=== PATIENT | male | born 1960 | race African-American/Black ===

== ENCOUNTER 2017-06-09 11:10 | Emergency (ER) | payer OTHER ==
[~2017-06-09] VITALS: Ht 190.5 cm; Wt 111.0 kg
[~2017-06-09 11:10] MED LIST: CENTRUM SILVER1 EAC3 PO; LEVITRA20 MG PO; LOSARTAN-HCTZ1 EAC2 PO; OXYCODONE-APAP1 EACH PO; PROTONIX40 MG PO
[2017-06-09 12:09] LABS: HEMATOCRIT 44.8 % (38.0-50.0); HEMOGLOBIN 14.9 G/DL (12.5-16.6); MCH 27.2 PG (29.0-34.0); MCHC 33.3 G/DL (30.0-36.0); MCV 81.8 FL (86-99); PLATELET COUNT 249 K/uL (156-360); RBC DIS.WIDTH-CV 14.1 % (11.8-14.6); RBC DIS.WIDTH-SD 41.7 % (39-53); RED BLOOD COUNT 5.48 M/uL (4.00-5.50); WHITE BLOOD COUNT 9.6 K/uL (4.1-10.2)
[2017-06-09 12:20] LABS: ALBUMIN 4.2 g/dL (3.2-4.8)
[2017-06-09 12:21] LABS: CHLORIDE 109 mEq/L (99-109); POTASSIUM 3.4 mEq/L (3.7-5.4); SODIUM 144 mEq/L (136-147)
[2017-06-09 12:23] LABS: GLUCOSE 113 mg/dL (70-99); TOTAL PROTEIN 8.2 g/dL (6.4-8.3)
[2017-06-09 12:25] LABS: TOTAL BILIRUBIN 0.5 mg/dL (0.0-1.0)
[2017-06-09 12:26] LABS: ALKALINE PHOSPHATASE 59 IU/L (3-129)
[2017-06-09 12:27] LABS: CREATININE 1.3 mg/dL (0.6-1.3); GFR ESTIMATE (CALCULATED) > 59 mL/min/ (58.99-99999)
[2017-06-09 12:28] LABS: AST (GOT) 17 IU/L (2-34); UREA NITROGEN (BUN) 17 mg/dL (9-23)
[2017-06-09 12:29] LABS: ALT (GPT) 14 IU/L (3-49)
[2017-06-09 14:12] LABS: APPEARANCE CLEAR ((CLEAR)); BILIRUBIN NEGATIVE; BLOOD NEGATIVE; COLOR YELLOW ((YELLOW)); GLUCOSE (STRIP) NEGATIVE; KETONES 5; LEUKOCYTES NEGATIVE; NITRITE NEGATIVE; PROTEIN (STRIP) NEGATIVE; SPECIFIC GRAVITY 1.018 (1.000-1.030); UCUL ADDED? NO; UROBILINOGEN 0.2 MG/DL (0.2-1.0)
[2017-06-09] MEDS ORDERED: MIRALAX119 GM PO (16:27)
[2017-06-09] MEDS ORDERED: CITRATE OF MAG296 ML PO (16:27)
[2017-06-09 16:47] VITALS: BP 154/90
== END 2017-06-09 16:47 | disposition home or self-care (01) ==
LOC: EME 11:10
DX: K59.00 Constipation, unspecified (principal); R10.32 Left lower quadrant pain; I10 Essential (primary) hypertension; Z96.652 Presence of left artificial knee joint; Z87.891 Personal history of nicotine dependence
CPT/HCPCS: 74177; 80053; 81003; 85027; 93005; 99281; 99285; J1885; J2405; J3010; J7030